=== PATIENT | female | born 2000 | race Caucasian/White ===

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

== ENCOUNTER 2022-11-06 12:30 | Emergency (ER) | payer OTHER, SELFPAY ==
--- NOTE | ~2022-11-06 | XR_ITS ---
EXAMINATION: XR nasal bones min 3V DATE: 11/06/2022 12:58 INDICATION: Nose injury, pain, and swelling. TECHNIQUE: 3 views of the nasal bones were obtained. COMPARISON: None. FINDINGS: Bone alignment is normal. No fracture. IMPRESSION: 1. No fracture. Reviewed, dictated and finalized at location A. IMPRESSION: 1. No fracture.
[2022-11-06 12:41] VITALS: BP 122/78; PULSE 93; RESP 18; TEMP 36.7; O2SAT 100
--- NOTE | 2022-11-06 12:45 | ED.GENADULT ---
HPI - General Adult General Chief complaint: Unspecified Stated complaint: nose injury Time Seen by Provider: 11/06/22 12:48 Mode of arrival: ambulatory Limitations: no limitations History of Present Illness HPI narrative: 3-year-old female presents with concern for nose injury. Reports 2 days ago she was kneed in the nose. She reports that bled for about 10 minutes. She reports she had some bruising. She reports it is painful. Reports she has used ice and ibuprofen. MD complaint: Nose injury Related Data Allergies Allergy/AdvReac Type Severity Reaction Status Date / Time No Known Allergies Allergy Verified 11/06/22 12:50 Review of Systems Review of Systems: CONSTITUTIONAL: Denies malaise, chills, sweats, or fever. EYES: Denies visual changes ENT: Denies rhinorrhea, current epistaxis. Reports sinus congestion CARDIOVASCULAR: Denies chest pain, palpitations, or edema. RESPIRATORY: Denies cough or dyspnea. SKIN: Denies rash or itching. Reports bruising and tenderness to the bridge of the nose MUSCULOSKELETAL: Denies back pain, joint pain, or myalgia. NEUROLOGIC: Denies numbness, weakness, or headache. All systems reviewed & are unremarkable except as noted in HPI and below PMFSH Past Medical History Medical History Right upper quadrant abdominal pain Family History Family History Mother No pertinent past medical history Social History Social History Smoking status: Never smoker Alcohol intake: never Substance use: never Living arrangements: with family Gender identity (if verbalized by the patient): Female Spiritual care concerns: No Comments At time of signature, agree with nursing past medical, surgical, social and family history. There is no relevant family history pertinent to the presenting complaint Exam Narrative: GENERAL: Well-appearing, well-nourished, and in no acute distress. HEAD: Normocephalic, atraumatic. EYES: PERRLA, sclera clear, and EOMI. No nystagmus. ENT: Nares clear, turbinates pink, no rhinorrhea or epistaxis. Mucous membranes moist. TM pearly hewitt with sharp light reflex bilaterally; no tragal tenderness. Oropharynx without erythema or lesions. Tonsils not enlarged and without exudate. NECK: Supple. No lymphadenopathy. No jugular venous distension, thyromegaly, or carotid bruits. Carotids were easily palpable bilaterally. CHEST: No respiratory distress. Clear to auscultation. No bony deformities, no asymmetry. Speaks in full sentences. HEART: Regular rate and rhythm. No murmur heard. Normal peripheral pulses. ABDOMEN: Soft, nontender, nondistended, normal active bowel sounds, no palpable masses. EXTREMITIES: Normal range of motion. No edema. Normal strength and sensation. SKIN: Warm, dry, no visible rash. NEURO: Alert and oriented x3. No focal deficits. Cranial nerves II through XII grossly intact PSYCH: Normal mood and affect Course Course Emergency Course: Patient is aware of diagnosis, understands and agrees to treatment plan. Anticipatory guidance given. Patient agrees to follow-up as directed and is aware of reasons to seek care at the emergency department. Portions of this record may have been created with voice recognition software Level of Care: Express Care Visit Vital Signs Vital signs: Vital Signs Temperature 98.0 F 11/06/22 12:41 Pulse Rate 93 11/06/22 12:41 Respiratory Rate 18 11/06/22 12:41 Blood Pressure 122/78 11/06/22 12:41 Pulse Oximetry 100 11/06/22 12:41 Oxygen Delivery Room Air 11/06/22 12:41 Temperature 98.0 F 11/06/22 12:41 Pulse Rate 93 11/06/22 12:41 Respiratory Rate 18 11/06/22 12:41 Blood Pressure 122/78 11/06/22 12:41 Pulse Oximetry 100 11/06/22 12:41 Oxygen Delivery Room Air 11/06/22 12:41 Reviewed. Medic
== END 2022-11-06 13:05 | disposition home or self-care (01) ==
PROVIDERS: Emergency Provider Nurse Practitioner; PCP Family Medicine
DX: S00.33XA Contusion of nose, initial encounter (principal); W51.XXXA Accidental striking against or bumped into by another person, initial encounter
CPT/HCPCS: 70160; 99213; G0463

== ENCOUNTER 2022-11-26 11:30 | Emergency (ER) | payer OTHER, SELFPAY ==
[2022-11-26 11:38] VITALS: BP 119/74; PULSE 90; RESP 18; TEMP 36.6; O2SAT 100
--- NOTE | 2022-11-26 11:58 | ED.EAR ---
HPI - Ear Problem General Chief complaint: Ear Stated complaint: Lt Ear Irritation Time Seen by Provider: 11/26/22 11:40 Source: patient Mode of arrival: ambulatory Limitations: no limitations History of Present Illness HPI Narrative: Virgie is a 22-year-old female patient presenting to the clinic today with complaints of left ear pain times 1 week. She reports she is also having difficulty hearing from the left ear. No known fever chills. Does have some nasal congestion however she does suffer from seasonal allergies. Related Data Allergies Allergy/AdvReac Type Severity Reaction Status Date / Time No Known Allergies Allergy Verified 11/26/22 11:42 Review of Systems Review of Systems: Pertinent positives per HPI. Patient denies any fever, chills, rash, headache, visual changes, dizziness, cough, runny nose, sore throat, shortness of breath, chest pain, palpitations, nausea, vomiting, diarrhea, constipation, abdominal pain, or any urinary issues. PMFSH Past Medical History Medical History Right upper quadrant abdominal pain Family History Family History Mother No pertinent past medical history Social History Social History Smoking status: Never smoker Alcohol intake: never Substance use: never Living arrangements: with family Gender identity (if verbalized by the patient): Female Spiritual care concerns: No Comments At the time of my signature, I reviewed and agree with the nursing past medical, surgical, social, and family history. There is no relevant family history pertinent to the patient complaint. Exam Narrative: General: Well-developed, well nourished, in no apparent distress Head: Normocephalic, atraumatic Eyes: Pupils equally round and reactive to light bilaterally, EOM intact, sclera and conjunctive clear, no discharge, lids normal Ears: Unable to visualize TMs due to cerumen impaction, bilateral ear canals impacted with cerumen, no drainage, grossly hearing normal. Tenderness to palpation of the left tragus and pulling of the pinna. Nose: Nares patent, clear discharge, no inflammation, no sinus tenderness. Mouth: Oropharynx without lesions or masses, good dentition, MMM. Neck: Supple, trachea midline, no enlargement of anterior or posterior cervical nodes, no thyroid masses or goiter palpable. Cardio: Regular rate and rhythm, s1 and s2 normal, no murmur appreciated. Resp: Clear to auscultation bilaterally anteriorly and posteriorly, no rhonchi, rales, wheezing or rubs Course Course Emergency Course: Portions of this record may have been created with voice recognition software. Level of Care: Express Care Visit Vital Signs Vital signs: Vital Signs Temperature 36.6 C 11/26/22 11:38 Pulse Rate 90 11/26/22 11:38 Respiratory Rate 18 11/26/22 11:38 Blood Pressure 119/74 11/26/22 11:38 Pulse Oximetry 100 11/26/22 11:38 Oxygen Delivery Room Air 11/26/22 11:38 Temperature 36.6 C 11/26/22 11:38 Pulse Rate 90 11/26/22 11:38 Respiratory Rate 18 11/26/22 11:38 Blood Pressure 119/74 11/26/22 11:38 Pulse Oximetry 100 11/26/22 11:38 Oxygen Delivery Room Air 11/26/22 11:38 Vital signs reviewed Procedures Ear Wax Removal Left Ear: Ear Wax Removal Date: 11/26/22 Cerumenolytic Used: other (Debrox) Results: Re-examined: other (Cerumen impaction remains) TM Examination: other (Unable to visualize left TM due to impacted cerumen) Ear Canal Exam: atraumatic Patient Tolerated Procedure: well and no complications Complications: pain (mild pain with ear curette) Technique: ear canal irrigated and ear canal curetted Additional Comments: Verbal consent obtained for ear lavage. Risk and benefits expl
== END 2022-11-26 12:20 | disposition home or self-care (01) ==
PROVIDERS: Emergency Provider Nurse Practitioner Family; PCP Family Medicine
DX: H60.312 Diffuse otitis externa, left ear (principal); H61.23 Impacted cerumen, bilateral
CPT/HCPCS: 69210; 99213; A9270; G0463

== ENCOUNTER 2023-12-12 13:56 | Outpatient (NON) | payer OTHER, SELFPAY | END 2023-12-12 13:57 | disposition home or self-care (01) | PROVIDERS: PCP Family Medicine; Visit Provider Family Medicine | DX: R39.9 Unspecified symptoms and signs involving the genitourinary system (principal) | CPT/HCPCS: 87086 ==

== ENCOUNTER 2024-09-28 15:04 | Emergency (ER) | payer OTHER, SELFPAY ==
--- OUTSIDE RECORDS SUMMARY | 2024-09-28 15:07 | XMS_ITS | Clinical Summary ---
Author Organization [facility] Address [address] [place] [address] Care Team Providers Care Lead Printer Name Role Phone Laura Bullard MD Primary Care Provider [phone] Source Comments [facility],non-owned Affiliates and Associated Physician Practices is amultiple site organization consisting of ambulatory clinics and hospital sitesin [place], [place], [place] and [place]. This disclosure is being madepursuant to the Care Everywhere program and may not contain all information available regarding this patient. Last updated 18.[facility] Active Problems Problem Noted Date Diagnosed Date Other chest pain Social History Tobacco Use Types Packs/Day Years Used Date Smoking Tobacco: Never Assessed Sex and Gender Information Value Date Recorded Sex Assigned at Not on file Gender Identity Not on file Sexual Orientation Not on file Plan of Treatment Health Maintenance Due Date Last Done Comments PAP SMEAR 2002 HIV SCREENING 2017 HPV VACCINE (1 - 3-dose series) 2017 CHLAMYDIA/GONORRHEA SCREENING 2018 MENINGOCOCCAL (Group B) VACC INE SHARED DECISION-MAKING (1 of 2 - Standard) 2018 HEPATITIS C SCREENING 10/14/2020 DTAP/TDAP/TD VACCINES (1 - Tdap) 2021 HEPATITIS B VACCINE (1 of 3 - 19+ 3-dose series) 2021 COVID-19 VACCINE (1 - 2023-2 5 season) 2024 INFLUENZA VACCINE (#1) 2024 DEPRESSION SCREENING 07/02/2024 ZOSTER VACCINE (1 of 2) 2052 HIB VACCINE Aged Out No longer eligi ble based on patient's age to complete this topic MENINGOCOCCAL GROUPS A/C/Y/W VACCINE Aged Out No longer eligible b ased on patient's age to complete this topic PNEUMOCOCCAL VACCINE Aged Out No long er eligible based on patient's age to complete this topic Care Teams Lead Printer Relationship Specialty Start Date End Date Laura Bullard MD [address] [place] [address] PCP - General Family Medicine 01/27/19
--- OUTSIDE RECORDS SUMMARY | 2024-09-28 15:07 | XMS_ITS | Data Portability ---
Author Organization [facility] Address [address] [place] [address] Care Team Providers Care Mine Wirer Name Role Phone BASILIOLOUISNICKI Primary Care Provider [phone] Assessment No assessment recorded. Plan of Treatment Reminders Order Date Submit Date Provider Last Modified By Organization Details Last Modified Time Details Appointments None recorded . Lab None recorded . Referral None recorded . Procedures None recorded . Surgeries None recorded . Imaging None recorded . Medication Orders Penelope Fe () 1.5 mg-30 mcg (21)/75 mg (7) tablet 023 09/29/19 [id number], [address], [place], [place], [id number], 14:24:35 Patient TargetsNo targets recorded. Patient InstructionsNo instructions recorded. Reason for Referral None Reported. Medical Equipment None Reported. Allergies No known drug allergies Medications Name Sig Start Date Stop Date Status Note LastModified by Organization Details LastModified Time bupropion HCl XL 300 mg 24 hr tablet, extended release TAKE 1 TABLET BY MOUTH EVERY MORNING active Not Available Not Available No t Available bupropion HCl XL 150 mg 24 hr tablet, extended release TAKE 1 TABLET BY MOUTH EVERY MORNING 09/28 completed Not Available Not Available Not Available [facility] () 1.5 mg-30 mcg (21)/75 mg (7) tablet TAKE 1 TABLET BY MOUTH EVERY DAY WITH MEALS active Not Available Not Available No t Available nitrofuranto in monohydrate/ macrocrystal s 100 mg capsule 09/28 completed Not Available Not Available Not Available Rhea 1.5 mg-30 mcg tablet TAKE 1 TABLET BY MOUTH EVERY DAY active Not Available Not Available No t Available Vitals Date Recorded Body height Body mass index (BMI) Percentile per age and sex Body mass index (BMI) Body weight Provider Name and Address Organization Details Last Updated DateTime 09/28/2022 161.29 cm 76 % 24.6 kg/m2 72256.52 g Sangita Sánchez [facility] 09/28/2022 14:17:54 Date Recorded Systolic blood pressure Diastolic blood pressure Provider Name and Address Organization Details Last Updated DateTime 09/28/2022 116 mm[Hg] 72 mm[Hg] Arabella Donovan, [facility]- [address], [place], [address], [facility] 09/28/2022 15:24:09 Social History Question Answer Notes LastModified by Organizat ion Details LastModified Time Tobacco Smoking Status Never Smoker Sangita Sánchez null, [facility] 09/28/2022 14:12:09 What Is Your Level Of Alcohol Consumption? None Information not available 09/28/2022 Do You Use Any Illicit Or Recreational Drugs? No Information not available 09/28/2022 Has Tobacco Cessation Counseling Been Provided? No Information not available 09/28/2022 Do You Or Have You Ever Used Any Other Forms Of Tobacco Or Nicotine? No Information not available 09/28/2022 Sex: Unknown Functional Status None recorded. Mental Status None recorded. Family History Nothing Reported. Medical History Condition Response Allergies (Food, seasonal, environmental ) N Other N Breast Cancer N Drug/Latex Allergies/Reactions N Blood Transfusion N Dermatologic Disorders N Lung Disease N Defects or Inherited Disease N Breast Problem N Gestational Diabetes N Hematologic disorders N Anesthesia Complications N History of STI N Deep Vein Thrombosis N Polycystic ovary syndrome N Anxiety Disorder Y Autoimmune disease N Arthritis N Infertility N Polyps N Acid Reflux (GERD) Y History of abnormal pap N Cancer N Stroke N Varicosities N Neurologic/Epilepsy N Endometriosis N High Cholesterol N Headaches N Fibromyalgia N Kidney Disease N Heart Problems N Kidney or Bladder Problems N Thyroid Problems N GI Problems N Eating Disorder N Anemia N Art (IVF or FET) N Psychiatric Illness N Ovarian Cancer N Diabetes N Pulmonary (TB, Asthma) N Hepatitis/Liver Disease N No Past Medical History N Eczema N Urinary Tract Infection N Abuse/Domestic Violence N Asthma N Trauma/Violence N Depression/ depression N Heart Disease N Pre-Eclampsia N Hypertension N Osteoporosis N Thrombophilias N Gynecological History Statement/Question Response Flow Moderate Are cycles usually normal Y Frequency of Cycle (Q days) 28 Date of LMP 09/26/2022 Sexually Active? Y Menses Monthly Y STIs/STDs N Age of first menstrual cycle 14 HPV Vaccine Y Sexual Problems? N Current Control Method BCPs Obstetrics History GPAL:G 0 P 0 0 0 0 Past Encounters Encounter ID Performer Location Encounter Start Date Encounter Closed Date Diagnosis/Indication Diagnosis SNOMED-CT Code Diagnosis ICD10 Code Diagnosis Note [id number] Arabella Donovan , [facility] [address] [address] 09/28/2022 14:11:07 09/28/2022 15:32:07 Contraception care management [id number] Z30.9 Today we discussed her BCP.She is happy on her current FRANCK.It has greatly helped her menstrual cycle flow & dysmenorrh ea.She wishes to continue this therapy. Declined STD screen-rec ent one negativeNo new sexual partners.N o other issues or concerns today. RF sent x 1yr RTO x 1yr or sooner if needed Time spent in visit is a total of 30 mins with at least 50% of visit consisting of counseling and review of plan of care. Health Concerns Section Related Observation LastModified by Organization Detai ls LastModified Time None Recorded Concern Status LastModified by Organization Details LastModified Time None Recorded Advance Directives Directive None Recorded Payers Encounter Date Sequence Insurance Name Policy Number Policy Atkinson Covered Member ID Atkinson Member ID Guarantor Name 09/28/2022 1 R [id number] Naomi Ortiz [id number] Virgie Ortiz Notes Date Note Type Note Provider Name and Address Organization Details Recorded Time 09/28/2022 text/html Here today to establish care & continue contraception management for heavy menses. Her health hx was reviewed & reported information documented in chart. Arabella Donovan [facility] [address], [place], [address], [facility] 09/28/2022 15:27:06 OBGyn Episode No OBEpisode recorded.
--- NOTE | 2024-09-28 15:09 | ED.GENADULT ---
HPI - General Adult General Chief complaint: Urogenital-Female Stated complaint: UTI Time Seen by Provider: 09/28/24 15:09 Source: patient Mode of arrival: ambulatory Limitations: no limitations History of Present Illness HPI narrative: 23-year-old female patient presents to [facility] with complaints of urinary symptoms for the past 2-3 days. Patient complains of burning with urination, urgency, frequency and some vaginal discharge. Denies any fevers, body aches or chills. Denies any low back pain. Denies any lower abdominal pain. Denies history of . Patient states last menstrual cycle started on September 10 and ended on September 07. Patient states she is sexually active with only 1 partner. Patient does not wish to be tested for STDs today. Related Data Allergies Allergy/AdvReac Type Severity Reaction Status Date / Time No Known Allergies Allergy Verified 09/28/24 15:14 Review of Systems Review of Systems: CONSTITUTIONAL: Denies fever, chills, or sweats. EYES: Denies visual changes, redness, or discharge. ENT: Denies rhinorrhea, congestion, sore throat, or otalgia. CARDIOVASCULAR: Denies chest pain, palpitations, or edema. RESPIRATORY: Denies cough or dyspnea. GASTROINTESTINAL: Denies abdominal pain, nausea, vomiting, or diarrhea. GENITOURINARY: Positive dysuria , denies hematuria. SKIN: Denies rash or itching. MUSCULOSKELETAL: Denies back pain, joint pain, or myalgia. NEUROLOGIC: Denies headache, numbness, or weakness. PSYCHIATRIC: Denies anxiety or depression. [facility] Past Medical History Medical History Right upper quadrant abdominal pain Family History Family History Mother No pertinent past medical history Social History Social History Social History: Caffeine-daily Smoking status: Never smoker Alcohol intake: never Substance use: never Substance use type: does not use Lack of Transportation: No Lack of Food: Never True Current Housing: I Have Housing Concerned About Future Housing: No Difficulty Paying Gas/Electric Bills: No Difficulty Paying for Meds: No Currently Unemployed: No Education: High School Diploma/GED Difficulty w/ Childcare or Family Care: No Living arrangements: with family Gender identity (if verbalized by the patient): Female Spiritual care concerns: No Comments At the time of my signature I agree with nursing past medical history, surgical, social, and family history. There is no relevant family history pertinent to the presenting complaint. Exam Narrative: GENERAL: Well-appearing, well-nourished, and in no acute distress. HEAD: Normocephalic, atraumatic. EYES: PERRLA and EOMI. ENT: Nares clear, no rhinorrhea or epistaxis. Mucous membranes moist. NECK: Supple. No lymphadenopathy CHEST: Clear to auscultation. No respiratory distress. HEART: Regular rate and rhythm. No murmur heard. Normal peripheral pulses. ABDOMEN: Soft, nontender, nondistended, normal active bowel sounds. no CVA tenderness on percussion EXTREMITIES: Normal range of motion. No edema. SKIN: Warm, dry, no rash. NEURO: No focal deficits. Alert and oriented x3. Course Course Level of Care: Express Care Visit Vital Signs Vital signs: Vital Signs Temperature 36.7 C 09/28/24 15:12 Pulse Rate 89 09/28/24 15:12 Respiratory Rate 18 09/28/24 15:12 Blood Pressure 122/64 09/28/24 15:12 Pulse Oximetry 100 09/28/24 15:12 Oxygen Delivery Room Air 09/28/24 15:12 Temperature 36.7 C 09/28/24 15:12 Pulse Rate 89 09/28/24 15:12 Respiratory Rate 18 09/28/24 15:12 Blood Pressure 122/64 09/28/24 15:12 Pulse Oximetry 100 09/28/24 15:12 Oxygen Delivery Room Air 09/28/24 15:12 Vital signs reviewed Medical Decision Making MDM Narrative Medical decision making narrative: discussed with patient that her urine did show some leukocytes and since she is having symptoms we will go ahead and start her on antibiotics today. Discussed with her that we will send this to the lab and if the culture shows she needs a different type of antibiotic we will call her call her and did new antibiotic at that time. Discussed with her that I would also provide her some fluconazole to take after she has completed the antibiotics for any yeast infection symptoms. Patient verbalized understanding denies any other questions or concerns at this time Differential Diagnosis Differential Diagnosis: differential diagnosis: Uncomplicated lower UTI, uncomplicated UTI, pyelonephritis Vital Signs Vital Signs: Vital Signs Temperature 36.7 C 09/28/24 15:12 Pulse Rate 89 09/28/24 15:12 Respiratory Rate 18 09/28/24 15:12 Blood Pressure 122/64 09/28/24 15:12 Pulse Oximetry 100 09/28/24 15:12 Oxygen Delivery Room Air 09/28/24 15:12 Temperature 36.7 C 09/28/24 15:12 Pulse Rate 89 09/28/24 15:12 Respiratory Rate 18 09/28/24 15:12 Blood Pressure 122/64 09/28/24 15:12 Pulse Oximetry 100 09/28/24 15:12 Oxygen Delivery Room Air 09/28/24 15:12 Lab Data Labs: Lab Results 09/28/24 Range/Units 15:18 POC Urine Color Light/pale POC Urine Clarity Cloudy POC Urine pH 7.0 POC Ur Specif [place] 1.010 POC Urine Protein Negative (Negative) POC Ur Glucose (UA) Negative (Negative) POC Urine Ketones Negative (Negative) POC Urine Blood Negative (Negative) POC Urine Nitrite Negative (Negative) POC Urine Bilirubin Negative (Negative) POC Urine Urobilinogen 0.2 POC U Leukocyte Esteras 1+ (Negative) POC Urine HCG, Qual Negative (Negative) Critical Care Time Critical Care Time Critical Care Time: No Discharge Plan Discharge Clinical Impression: Urinary tract infection Patient Disposition: Home, Self-Care Condition: Stable Instructions: Antibiotic Form, Urinary Tract Infection in Women (ED) Additional Instructions: We will send a urine culture off to the lab; if the culture identifies an organism that the prescribed antibiotic will not treat, you will receive a phone call from an urgent care staff member and an appropriate antibiotic will be prescribed. -Your symptoms should begin to improve within a day of starting antibiotics. But you should finish all the antibiotic pills you get. Otherwise your infection might come back. -Also recommend: drink more fluid. It might help flush out germs, and it does no harm -Tylenol/ibuprofen prn for pain or fever -Follow-up with your primary care provider for urine recheck or seek ER visit if condition worsens with high fever, nausea, vomiting and severe back pain. Patient Language: Nepali Prescriptions: New nitrofurantoin monohyd/m-cryst [Macrobid] 100 mg capsule 100 mg PO Q12H 5 Days Qty: 10 0RF Rx Instructions: must administer with a meal/food fluconazole 150 mg tablet 150 mg PO ONCE Qty: 1 0RF Rx Instructions: as a single dose, take after completing antibiotics No Action bupropion HCl 300 mg tablet extended release 24 hr 150 mg PO QAM Qty: 30 1RF Follow-up/Referrals: Laura Bullard MD [Primary Care Provider] - Time of Disposition: 15:27
[2024-09-28 15:12] VITALS: BP 122/64; PULSE 89; RESP 18; TEMP 36.7; O2SAT 100
[2024-09-28 15:20] LABS: BEDSIDEPREGUCG Negative (Negative)
[2024-09-28 15:21] LABS: EDUAAPPEAR Cloudy; EDUABILI Negative (Negative); EDUABLOOD Negative (Negative); EDUACOLOR1 Light/Pale; EDUAGLUCOSE Negative (Negative); EDUAKETONE Negative (Negative); EDUALEUKO 1+ (Negative); EDUANITRATE Negative (Negative); EDUAPROTEIN Negative (Negative); EDUAUROBILI 0.2
== END 2024-09-28 15:29 | disposition home or self-care (01) ==
PROVIDERS: Emergency Provider Nurse Practitioner Family; PCP Family Medicine
DX: N39.0 Urinary tract infection, site not specified (principal)
CPT/HCPCS: 81003; 81025; 87086; 99213; G0463

== ENCOUNTER 2025-02-05 19:13 | Emergency (ER) | payer OTHER, SELFPAY ==
[2025-02-05] VITALS (17 sets, daily range): BP systolic 106–119; BP diastolic 58–77; PULSE 110–131; RESP 16–35; TEMP 37.8; O2SAT 100
--- NOTE | ~2025-02-05 | CT_ITS ---
CLINICAL INDICATION: Tachycardia and tachypnea with bilateral flank pain COMPARISON: None. TECHNIQUE: Multiple contiguous axial images of the abdomen and pelvis were performed following the ad ministration of with 100 mL Omnipaque-350 intravenous contrast The dose-length product (DLP) was 305.47 mGy-cm. Automated exposure control and iterative reconstruction technique were employed. FINDINGS/OBSERVATIONS: Visualized lower thorax: The bilateral lung bases are clear. The heart is of normal size, without pericardial effusion. Liver: The liver demonstrates homogeneous enhancement and is not enlarged. Gallbladder and biliary system: The gallbladder is only minimally distended, and otherwise unremarkable. Pancreas: The pancreas enhances homogeneously without ductal dilatation. Spleen: The spleen enhances homogeneously and is not enlarged. Kidneys: 2 mm nonobstructing calculus within the lower pole of the left kidney The bilateral kidneys enhance symmetrically without significant hydronephrosis or additional renal ca lculi. Adrenal glands: Unremarkable. Gastrointestinal tract: Trace fecal stasis within the colon Appendix: The air-filled appendix is of normal caliber (axial series, images 124 through 131). Vasculature: Unremarkable. Lymph nodes: No pathologically enlarged or morphologically suspicious lymph nodes within the retroperitoneum or at the root of the mesentery. Pelvic structures: The bladder is distended, and demonstrates surrounding inflammatory change for which cystitis is susp ected. The uterus is anteverted and anteflexed. Free fluid within the rectovaginal pouch, likely physiologic in a patient of this age. Body wall and musculoskeletal: No significant degenerative disease within the lower thoracic or lumbosacral spine. IMPRESSION: Findings within the pelvis for which cystitis is suspected. Nonobstructing 2 mm calculus within the lower pole of the left kidney Reviewed, dictated and finalized at location A.
--- OUTSIDE RECORDS SUMMARY | 2025-02-05 19:15 | XMS_ITS | Clinical Summary ---
Author Organization [facility] Address [address] [place] [address] Care Team Providers Care Medical And Health Services Manager Name Role Phone Laura Bullard MD Primary Care Provider [phone] Source Comments [facility],non-owned Affiliates and Associated Physician Practices is amultiple site organization consisting of ambulatory clinics and hospital sitesin [place], [place], [place] and [place]. This disclosure is being madepursuant to the Care Everywhere program and may not contain all information available regarding this patient. Last updated 18.[facility] Active Problems Problem Noted Date Diagnosed Date Other chest pain Social History Tobacco Use Types Packs/Day Years Used Date Smoking Tobacco: Never Assessed Comments Unknown Sex and Gender Information Value Date Recorded Sex Assigned at Not on file Legal Sex Female 7:47 AM CDT Gender Identity Not on file Sexual Orientation Not on file Plan of Treatment Health Maintenance Due Date Last Done Comments HIV SCREENING 2017 HPV VACCINE (1 - 3-dose series) 2017 CHLAMYDIA/GONORRHEA SCREENING 2018 MENINGOCOCCAL (Group B) VACC INE SHARED DECISION-MAKING (1 of 2 - Standard) 2018 HEPATITIS C SCREENING 10/14/2020 DTAP/TDAP/TD VACCINES (1 - Tdap) 2021 HEPATITIS B VACCINE (1 of 3 - 19+ 3-dose series) 2021 COVID-19 VACCINE (1 - 2023-2 5 season) 2024 DEPRESSION SCREENING 07/02/2024 INFLUENZA VACCINE (#1) 2025 ZOSTER VACCINE (1 of 2) 2052 HIB VACCINE Aged Out No longer eligi ble based on patient's age to complete this topic MENINGOCOCCAL GROUPS A/C/Y/W VACCINE Aged Out No longer eligible b ased on patient's age to complete this topic PNEUMOCOCCAL VACCINE Aged Out No long er eligible based on patient's age to complete this topic Insurance ANTHEM ANTHEM Care Teams Medical And Health Services Manager Relationship Specialty Start Date End Date Laura Bullard MD [address] [place] [address] PCP - General Family Medicine 01/27/19
[2025-02-05 19:52] LABS: BEDSIDEPREGUCG Negative (Negative)
[2025-02-05 20:01] LABS: Add Urine Microscopic? YES; Appearance Urine Clear (Clear); Glucose Urine UA Negative (Negative); Leukocyte Esterase Ur 1+ LEU/UL (Negative); Need Manual Microscopic Reviewed; Nitrate Urine Negative (Negative); Non Pathogenic Casts 0-2; Specific Grav Ur 1.014 (1.001-1.035)
[2025-02-05 21:02] LABS: Hematocrit 34.1 % (37.0-47.0); Hemoglobin 11.1 g/dL (12.0-15.0); Immature Granulocyte Percent A 0.3 % (0-0.5); Lymphocytes Absolute Auto 0.84 K/mm3 (0.9-3.2); Mean Corpuscular HGB Conc 32.6 g/dl (32-36); Mean Corpuscular Hemoglobin 28.9 pg (26-34); Mean Corpuscular Volume 88.8 fl (80-100); Nucleated Red Blood Cells Absolute Auto 0.000 K/mm3 (0.0-0.012); Nucleated Red Blood Cells Perc 0.0 % (0.0-0.2); Platelet Count Result 212 k/mm3 (150-375); Red Blood Count 3.84 M/mm3 (4.2-5.4); White Blood Count 9.1 K/mm3 (4.5-10.0)
--- NOTE | 2025-02-05 21:12 | ED_ITS ---
HPI - Female Genitourinary General Chief complaint: Urogenital-Female Stated complaint: Bilat flank pain-poss kidney stone Time Seen by Provider: 02/05/25 20:45 Source: patient and family (Mother) Mode of arrival: ambulatory Limitations: no limitations History of Present Illness HPI Narrative: 24-year-old female presents with report bilateral flank pain for 4 days. She is concern for kidney stones although no previous. She has been having urinary urgency and frequency but denies any dysuria or hematuria. She has had a history of urinary tract infection but it was otherwise uncomplicated. No history of pyelonephritis. Last menstrual period was January 30 through the . Denies any other vaginal discharge or bleeding. No history of sexually transmitted infections. She notes that she does have some occasional abdominal pain in although it moves around for example under her ribs at times. Her last bowel movement was not yesterday, possibly the day before. She is currently on Flagyl for possible bacterial vaginosis. This was diagnosed/prescribed by her primary care physician. She does not have an Ob Gyne or a urologist. No previous abdominal surgeries. Related Data Allergies Allergy/AdvReac Type Severity Reaction Status Date / Time No Known Allergies Allergy Verified 02/05/25 19:33 PMFSH Past Medical History Medical History Right upper quadrant abdominal pain Family History Family History Mother No pertinent past medical history Social History Social History Social History: Caffeine-daily Smoking status: Never smoker Alcohol intake: never Substance use: never Substance use type: does not use Lack of Transportation: No Lack of Food: Never True Current Housing: I Have Housing Concerned About Future Housing: No Difficulty Paying Gas/Electric Bills: No Difficulty Paying for Meds: No Currently Unemployed: No Education: High School Diploma/GED Difficulty w/ Childcare or Family Care: No Living arrangements: with family Gender identity (if verbalized by the patient): Female Spiritual care concerns: No Exam 2 Narrative: GENERAL: Well-appearing, well-nourished, HEAD: Normocephalic, atraumatic. EYES: Non injected, non icteric ENT: Nares clear, no rhinorrhea or epistaxis. Gross auditory acuity intact. NECK: Supple. No meningismus. CHEST: Speaking in full sentences. No respiratory distress. HEART: Tachycardic rate and rhythm, 116 beats per minute during my assessment ABDOMEN: Soft, nondistended. No rigidity or guarding. Not peritoneal. Back/: Patient notes mild CVA tenderness which she endorses bilaterally although based on physical exam it seems right greater than left EXTREMITIES: Normal range of motion. No lower extremity edema. SKIN: Warm, dry, no rash. NEURO: No focal deficits. Alert and oriented. Answering questions. Following commands. Normal speech without aphasia or dysarthria. PSYCH: Normal mood and affect. Course Vital Signs Vital signs: Vital Signs Temperature 100.1 F H 02/05/25 19:31 Pulse Rate 131 H 02/05/25 19:31 Respiratory Rate 20 02/05/25 19:31 Blood Pressure 119/68 02/05/25 19:31 Pulse Oximetry 100 02/05/25 19:31 Oxygen Delivery Room Air 02/05/25 19:31 Temperature 98.9 F 02/06/25 02:59 Pulse Rate 108 H 02/06/25 02:59 Respiratory Rate 24 H 02/06/25 02:59 Blood Pressure 98/57 L 02/06/25 02:59 Pulse Oximetry 98 02/06/25 02:59 Oxygen Delivery Room Air 02/05/25 19:31 MDM - Female Genitourinary MDM Narrative Medical decision making narrative: Patient presents with bilateral flank pain. In the emergency department she is borderline febrile with a temperature of a 100.1? F and markedly tachycardic at 131 beats per minute. Acetaminophen and 1 L IV fluids ordered. test negative. No bacteria on urinalysis and only 1+ leukocyte esterase but otherwise without marked signs of infection. She has a normocytic anemia which technically represents a drop from previous although last lab was more than 5 years ago. She continues to be tachycardic at 116-119 beats per minute. Additional 1 L IV fluids, IV ketorolac ordered. Findings were concerning for cystitis on imaging and based on symptoms will proceed with treating as urinary tract infection and pyelonephritis despite the UA not appearing markedly infected. Did order urine culture and asked RN to call lab to confirm will process. Ceftriaxone given. Patient is persistently tachycardic, in the 110s and occasionally still in the low 120s. This is after 2 L IV fluids. Given this, will obtain EKG, D-dimer, and TSH. Per review of the EMR, patient has presented previously and had heart rates in the 80s and frequently in the 90s. D-dimer and TSH normal. Patient's heart rate is view to be between 99 and 101 at this time. Stable for discharge. Provided Rx for cephalexin, acetaminophen and ibuprofen. Differential Diagnosis Differential diagnosis: Likely urinary tract infection (Pyelonephritis), ovarian cyst, ruptured ovarian cyst, cystitis and other (Kidney stone, infected kidney stone, renal/perinephric abscess; TOA/PID; intraabdominal abscess; constipation) Lab Data Attestation: I reviewed the patient's lab results. Lab results narrative: Chemistry and lipase normal 02/05/25 20:57 02/05/25 20:57 Labs: Lab Results 02/05/25 02/05/25 02/05/25 Range/Units 19:46 19:47 20:57 WBC 9.1 (4.5-10.0) K/mm3 RBC 3.84 L (4.2-5.4) M/mm3 Hgb 11.1 L (12.0-15.0) g/dL Hct 34.1 L (37.0-47.0) % MCV 88.8 (80-100) fl MCH 28.9 (26-34) pg MCHC 32.6 (32-36) g/dl RDW 12.4 (11.5-14.5) % Plt Count 212 (150-375) k/mm3 MPV 10.1 (7.4-10.4) fl Immature Gran % (Auto) 0.3 (0-0.5) % Neut % (Auto) 72.1 (45.5-73.1) % Lymph % (Auto) 9.3 L (18.3-44.2) % [place] % (Auto) 17.6 H (2.6-8.5) % Eos % (Auto) 0.1 (0-4.4) % Baso % (Auto) 0.6 (0.2-1.2) % Lymph # (Auto) 0.84 L (0.9-3.2) K/mm3 [place] # (Auto) 1.6 H (0.1-0.6) K/mm3 Eos # (Auto) 0.0 (0-0.3) K/mm3 Baso # (Auto) 0.1 (0.0-0.1) K/mm3 Abs Immat Gran (auto) 0.03 (0.00-0.031) K/mm3 Absolute Neuts (auto) 6.5 (1.3-6.7) K/mm3 Absolute Nucleated RBC 0.000 (0.0-0.012) K/mm3 Nucleated RBC % 0.0 (0.0-0.2) % D-Dimer (<0.48) ug/mL Sodium 137 (137-145) mmol/L Potassium 3.5 (3.4-5.0) mmol/L Chloride 104 (98-107) mmol/L Carbon Dioxide 23 (22-30) mmol/L Anion Gap 10 (4-12) mmol/L BUN 6 L (7-17) mg/dL Creatinine 0.70 (0.7-1.0) mg/dL Estim Creat Clear Calc 90 ml/min Estimated GFR > 60 (59 - ) Glucose 90 (65-110) mg/dL Calcium 9.0 (8.4-10.2) mg/dL Total Bilirubin 0.2 (0.2-1.3) mg/dL AST 23 (14-36) U/L ALT 13 (6-35) U/L Alkaline Phosphatase 59 (38-126) U/L Total Protein 7.3 (6.3-8.2) g/dL Albumin 4.1 (3.5-5.1) g/dL Lipase 68 (23-300) U/L TSH 0.471 (0.465-4.680) uIU/mL Urine Color Yellow (Yellow) Urine Appearance Clear (Clear) Urine pH 7.5 (5.0-9.0) Ur Specific [place] 1.014 (1.001-1.035) Urine Protein 1+ H (Negative) mg/dL Urine Glucose (UA) Negative (Negative) mg/dL Urine Ketones Negative (Negative) mg/dL Ur Blood (Man) Negative (Negative) Urine Nitrate Negative (Negative) Urine Bilirubin Negative (Negative) Urine Urobilinogen 1.0 (<2.0) mg/dL Add Ur Microanalysis Reviewed Leukocyte Esterase Rfl 1+ H (Negative) [place]/UL Urine RBC 0-2 (0-2) /hpf Urine WBC 0-5 (0-3) /hpf Ur Squamous Epith Cells Moderate (Few) /hpf Urine Bacteria None seen /hpf Urine Casts 0-2 POC Urine HCG, Qual Negative (Negative) 02/06/25 Range/Units 00:39 WBC (4.5-10.0) K/mm3 RBC (4.2-5.4) M/mm3 Hgb (12.0-15.0) g/dL Hct (37.0-47.0) % MCV (80-100) fl MCH (26-34) pg MCHC (32-36) g/dl RDW (11.5-14.5) % Plt Count (150-375) k/mm3 MPV (7.4-10.4) fl Immature Gran % (Auto) (0-0.5) % Neut % (Auto) (45.5-73.1) % Lymph % (Auto) (18.3-44.2) % [place] % (Auto) (2.6-8.5) % Eos % (Auto) (0-4.4) % Baso % (Auto) (0.2-1.2) % Lymph # (Auto) (0.9-3.2) K/mm3 [place] # (Auto) (0.1-0.6) K/mm3 Eos # (Auto) (0-0.3) K/mm3 Baso # (Auto) (0.0-0.1) K/mm3 Abs Immat Gran (auto) (0.00-0.031) K/mm3 Absolute Neuts (auto) (1.3-6.7) K/mm3 Absolute Nucleated RBC (0.0-0.012) K/mm3 Nucleated RBC % (0.0-0.2) % D-Dimer 0.35 (<0.48) ug/mL Sodium (137-145) mmol/L Potassium (3.4-5.0) mmol/L Chloride (98-107) mmol/L Carbon Dioxide (22-30) mmol/L Anion Gap (4-12) mmol/L BUN (7-17) mg/dL Creatinine (0.7-1.0) mg/dL Estim Creat Clear Calc ml/min Estimated GFR (59 - ) Glucose (65-110) mg/dL Calcium (8.4-10.2) mg/dL Total Bilirubin (0.2-1.3) mg/dL AST (14-36) U/L ALT (6-35) U/L Alkaline Phosphatase (38-126) U/L Total Protein (6.3-8.2) g/dL Albumin (3.5-5.1) g/dL Lipase (23-300) U/L TSH (0.465-4.680) uIU/mL Urine Color (Yellow) Urine Appearance (Clear) Urine pH (5.0-9.0) Ur Specific [place] (1.001-1.035) Urine Protein (Negative) mg/dL Urine Glucose (UA) (Negative) mg/dL Urine Ketones (Negative) mg/dL Ur Blood (Man) (Negative) Urine Nitrate (Negative) Urine Bilirubin (Negative) Urine Urobilinogen (<2.0) mg/dL Add Ur Microanalysis Leukocyte Esterase Rfl (Negative) [place]/UL Urine RBC (0-2) /hpf Urine WBC (0-3) /hpf Ur Squamous Epith Cells (Few) /hpf Urine Bacteria /hpf Urine Casts POC Urine HCG, Qual (Negative) Imaging Data Radiologist's impression: IMPRESSION: Findings within the pelvis for which cystitis is suspected. Nonobstructing 2 mm calculus within the lower pole of the left kidney ECG Data EKG #1: Attestation: I personally reviewed and interpreted this ECG as follows: ECG completion date: 02/06/25 ECG completion time: 01:19 Interpretation: Sinus tachycardia at a rate of 103 beats per minute. PA interval 140. QRS 82. QT/QTC 324/425. Good R-wave progression across the precordial leads. T-wave flattening in 3 but upright in contiguous inferior leads. T-wave inversion in V3 though I suspect this is due to lead placement. No other T-wave inversions. Discharge Plan Discharge Clinical Impression: Normocytic anemia, Bilateral flank pain, Urinary symptom or sign, Pyelonephritis Patient Disposition: Home Condition: Stable Instructions: Antibiotic Form, Kidney Infection (ED), Flank Pain (ED), Anemia (ED), Urinary Urgency and Frequency (DC) Additional Instructions: Although, on the end of your urine did not show all of the labs that would suggest a urinary tract infection, your CT scan did and her symptoms do sound consistent with a urinary tract infection that ascended to your kidneys known as a pyelonephritis. You received your 1st dose of antibiotic in the emergency department and the rest of the course has been prescribed. Take the entire course even if you start feeling better. Follow-up with your primary care physician. Return to the emergency department any new or worsening symptoms such as fever greater than 100.4? F and pr pain not responding to the medications prescribed. Acetaminophen/Tylenol (maximum 4000 mg per day) is safe to take with NSAIDs (ibuprofen/Motrin) for pain relief. Patient Language: Belarusian Prescriptions: New acetaminophen 650 mg tablet extended release 650 mg PO Q8H PRN (Reason: pain) Qty: 30 0RF ibuprofen 600 mg tablet 600 mg PO TID PRN (Reason: pain) Qty: 30 0RF cephalexin 500 mg tablet 500 mg PO Q8H 10 Days Qty: 30 0RF No Action bupropion HCl 150 mg tablet extended release 24 hr 150 mg PO DAILY Qty: 90 0RF clindamycin-benzoyl peroxide 1-5 % gel 1 applic topical .HS Qty: 50 2RF fluconazole 150 mg tablet 150 mg PO Q72H Qty: 2 0RF lidocaine HCl [Lidocaine Viscous] 2 % solution 1 applic mucous membrane TID Qty: 300 0RF cyclobenzaprine 10 mg tablet 10 mg PO TID PRN (Reason: muscle spasm) Qty: 20 0RF metronidazole 500 mg tablet 500 mg PO Q12H Qty: 14 0RF Follow-up/Referrals: Laura Bullard MD [Primary Care Provider] - Stand Alone Forms: Work/School Release IP Time of Disposition: 02:49
[2025-02-05 21:14] LABS: Alanine Aminotransferase 13 U/L (6-35); Albumin Level 4.1 g/dL (3.5-5.1); Alkaline Phosphatase 59 U/L (38-126); Anion Gap 10 mmol/L (4-12); Aspartate Amino Transferase 23 U/L (14-36); Bilirubin,Total 0.2 mg/dL (0.2-1.3); Blood Urea Nitrogen 6 mg/dL (7-17); Calcium 9.0 mg/dL (8.4-10.2); Carbon Dioxide 23 mmol/L (22-30); Chloride 104 mmol/L (98-107); Estimated CRCL calculation 90 ml/min; Estimated Glomerular Filt Rate > 60; Glucose 90 mg/dL (65-110); Lipase 68 U/L (23-300); Potassium 3.5 mmol/L (3.4-5.0); Sodium 137 mmol/L (137-145); Total Protein 7.3 g/dL (6.3-8.2)
[2025-02-05] MEDS: ACETAMINOPHEN 500 MG TABLET 1000 MG PO (21:26)
[2025-02-05] MEDS: SODIUM CHLORIDE 0.9% IV 1,000 ML 999 ML IV CONT ×2 (21:26→23:08)
--- OUTSIDE RECORDS SUMMARY | 2025-02-05 21:45 | XMS_ITS | Clinical Summary ---
Author Organization [facility] Address [address] [place] [address] Care Team Providers Care Bull Gang Supervisor Name Role Phone Laura Bullard MD Primary Care Provider [phone] Source Comments [facility],non-owned Affiliates and Associated Physician Practices is amultiple site organization consisting of ambulatory clinics and hospital sitesin [place], [place], [place] and [place]. This disclosure is being madepursuant to the Care Everywhere program and may not contain all information available regarding this patient. Last updated 18.[facility] Active Problems Problem Noted Date Diagnosed Date [...] this topic Insurance ANTHEM ANTHEM Care Teams Bull Gang Supervisor Relationship Specialty Start Date End Date Laura Bullard MD [address] [place] [address] PCP - General Family Medicine 01/27/19
[2025-02-05] MEDS: KETOROLAC 15 MG/ML VIAL (*BKC) IV PUSH (23:08)
--- NOTE | 2025-02-05 23:13 | PC.NURSE ---
pct at bedside to attempt blood cultures.
[2025-02-06] VITALS (14 sets, daily range): BP systolic 87–100; BP diastolic 50–57; PULSE 96–115; RESP 12–28; TEMP 37.2; O2SAT 96–100
--- NOTE | 2025-02-06 00:21 | ECG_ITS ---
Test Date: 2025-02-06 01:19:26 Measurements Intervals [place] Rate: 103 P: 41 [place]: 140 QRS: 47 QRSD: 82 T: 30 QT: 324 QTc: 425 Interpretive Statements SINUS TACHYCARDIA BORDERLINE T WAVE ABNORMALITY- ANTERIOR LEADS BORDERLINE ECG No previous ECG available for comparison Electronically Signed On 02-06-2025 06:16:39 CDT by Ramu Lubin D.O.
--- NOTE | 2025-02-06 00:23 | PC.NURSE ---
edt at bedside for 2nd attempt on blood cultures
[2025-02-06] MEDS: cefTRIAXone 1 GM in SODIUM CHLORIDE 0.9% IV 50 ML 100 ML IVPB (00:52)
[2025-02-06] MEDS: MORPHINE SULFATE (*CRX) 2 MG/ML INJ IV PUSH (00:53)
[2025-02-06 01:34] LABS: Thyroid Stimulating Hormone 0.471 uIU/mL (0.465-4.680)
== END 2025-02-06 03:01 | disposition home or self-care (01) ==
PROVIDERS: Emergency Provider Student in an Organized Health Care Education/Training Program; PCP Family Medicine
DX: N12 Tubulo-interstitial nephritis, not specified as acute or chronic (principal); D64.9 Anemia, unspecified; R94.31 Abnormal electrocardiogram [ECG] [EKG]; R00.0 Tachycardia, unspecified
CPT/HCPCS: 36415; 74177; 80053; 81001; 81025; 83690; 84443; 85025; 85380; 87040; 87086; 93005; 96361; 96365; 96374; 96375; 99284; A9270; J0696; J1885; J2270; J7030; Q9967

== ENCOUNTER 2025-02-06 10:29 | Emergency (ER) | payer OTHER, SELFPAY ==
[2025-02-06] VITALS (19 sets, daily range): BP systolic 90–124; BP diastolic 58–77; PULSE 93–123; RESP 14–38; TEMP 36.9; O2SAT 98–100
--- OUTSIDE RECORDS SUMMARY | 2025-02-06 10:33 | XMS_ITS | Clinical Summary ---
Author Organization [facility] Address [address] [place] [address] Care Team Providers Care Public Health Doctor Name Role Phone Laura Bullard MD Primary Care Provider [phone] Source Comments [facility],non-owned Affiliates and Associated Physician Practices is amultiple site organization consisting of ambulatory clinics and hospital sitesin [place], [place], [place] and [place]. This disclosure is being madepursuant to the Care Everywhere program and may not contain all information available regarding this patient. Last updated 18.[facility] Active Problems Problem Noted [...] this topic Insurance ANTHEM ANTHEM Care Teams Public Health Doctor Relationship Specialty Start Date End Date Laura Bullard MD [address] [place] [address] PCP - General Family Medicine 01/27/19
[2025-02-06] MEDS: BELLADONNA ALK/PHENOB ELIX 10 ML, MAG HYDROX/ALUMINUM HYD/SIMETH 30 ML, LIDOCAINE 2% VI... PO (11:18)
[2025-02-06] MEDS: KETOROLAC (*BKC) 60 MG/2 ML VIAL IM (11:18)
--- NOTE | 2025-02-06 12:26 | ED_ITS ---
HPI - Back Pain/Injury General Chief Complaint: Back Pain/Injury Stated Complaint: throat pain Time Seen by Provider: 02/06/25 10:36 History of Present Illness HPI Narrative: Patient is a 24-year-old female who presents ER with back pain prescription. Was seen last night for the same pain. She reports she is diagnosed with pyelonephritis. Her blood working urine from last night look unremarkable though she was prescribed cephalexin as well as Tylenol ibuprofen. Due to sore throat she is unable to swallow her medications after she filled them today. Related Data Allergies Allergy/AdvReac Type Severity Reaction Status Date / Time No Known Allergies Allergy Verified 02/05/25 19:33 Review of Systems Review of Systems: All systems reviewed & are unremarkable except as noted in HPI and below Constitutional: Constitutional: Reports no additional constitutional complaints Cardiovascular: Cardiovascular: Reports no additional cardiovascular complaints Respiratory: Respiratory: Reports no additional respiratory complaints PMFSH Past Medical History Medical History Right upper quadrant abdominal pain Family History Family History Mother No pertinent past medical history Social History Social History Social History: Caffeine-daily Smoking status: Never smoker Alcohol intake: never Substance use: never Substance use type: does not use Lack of Transportation: No Lack of Food: Never True Current Housing: I Have Housing Concerned About Future Housing: No Difficulty Paying Gas/Electric Bills: No Difficulty Paying for Meds: No Currently Unemployed: No Education: High School Diploma/GED Difficulty w/ Childcare or Family Care: No Living arrangements: with family Gender identity (if verbalized by the patient): Female Spiritual care concerns: No Exam Narrative: GENERAL: Uncomfortable/tearful-appearing, well-nourished. HEAD: Normocephalic, atraumatic. ENT: Mucous membranes moist. Normal appearing posterior oropharynx without tonsillar hypertrophy or exudate. Uvula midline and nonedematous. No angioedema. NECK: Supple. CHEST: Clear to auscultation. No respiratory distress. HEART: Tachycardic. Normal peripheral pulses. ABDOMEN: Soft, nontender, nondistended. No CVA tenderness. EXTREMITIES: Normal range of motion. No edema. NEURO: Alert and oriented x3. PSYCH: Normal mood and affect. Course Course Emergency Course: Patient had a unremarkable exam last night with a normal CBC and CMP as well as urinalysis lacking significant infection. I do not feel she needs repeat labs. Patient received Toradol body aches and a GI cocktail for sore throat. I will discharge her with some Flexeril in case she is having muscle spasms causing some her back pain and also viscous lidocaine for sore throat. Vital Signs Vital signs: Vital Signs Pulse Rate 111 H 02/06/25 11:01 Respiratory Rate 18 02/06/25 11:01 Blood Pressure 124/77 02/06/25 11:01 Pulse Oximetry 100 02/06/25 11:01 Oxygen Delivery Room Air 02/06/25 11:01 Pulse Rate 111 H 02/06/25 11:01 Respiratory Rate 18 02/06/25 11:01 Blood Pressure 124/77 02/06/25 11:01 Pulse Oximetry 100 02/06/25 11:01 Oxygen Delivery Room Air 02/06/25 11:01 Discharge Plan Discharge Clinical Impression: Sore throat, Back pain Patient Disposition: Home Condition: Stable Instructions: Back Pain (ED) Additional Instructions: Please return to the emergency department if you develop severe pain that is not controlled by pain medications or if you are unable to walk because of pain or weakness. Return to the emergency department immediately if you develop fevers, loss of bowel or bladder control (dribbling of urine or having accidents you wouldn't normally have), inability to urinate, numbness of your genital or anal area, or weakness/numbness of your legs or arms as these could all be signs of a serious medical emergency. Patient Language: Tajik Prescriptions: New lidocaine HCl [Lidocaine Viscous] 2 % solution 1 applic mucous membrane TID Qty: 300 0RF cyclobenzaprine 10 mg tablet 10 mg PO TID PRN (Reason: muscle spasm) Qty: 20 0RF No Action bupropion HCl 150 mg tablet extended release 24 hr 150 mg PO DAILY Qty: 90 0RF clindamycin-benzoyl peroxide 1-5 % gel 1 applic topical .HS Qty: 50 2RF fluconazole 150 mg tablet 150 mg PO Q72H Qty: 2 0RF acetaminophen 650 mg tablet extended release 650 mg PO Q8H PRN (Reason: pain) Qty: 30 0RF ibuprofen 600 mg tablet 600 mg PO TID PRN (Reason: pain) Qty: 30 0RF cephalexin 500 mg tablet 500 mg PO Q8H 10 Days Qty: 30 0RF metronidazole 500 mg tablet 500 mg PO Q12H Qty: 14 0RF Follow-up/Referrals: Laura Bullard MD [Primary Care Provider] - 1 Week
== END 2025-02-06 13:41 | disposition home or self-care (01) ==
PROVIDERS: Emergency Provider Emergency Medicine; PCP Family Medicine
DX: J02.9 Acute pharyngitis, unspecified (principal); M54.9 Dorsalgia, unspecified
CPT/HCPCS: 96372; 99283; A9270; J1885

== ENCOUNTER 2025-02-08 16:21 | Emergency (ER) | payer OTHER, SELFPAY ==
--- OUTSIDE RECORDS SUMMARY | 2025-02-08 16:23 | XMS_ITS ---
Author Organization Unknown ENCOUNTERS Encounter Performer Location Date Diagnosis Diagnosis Status Emergency [facility] [address] [place] [address] [id number] [place]AC[place] Pre Admit [facility] [address] [place] [address] [id number] Pre Admit [facility] [address] [place] [address] [id number] Emergency [facility] [address] [place] [address] [id number] [place] Outpatient Laurasher Bullard [facility] [address] [place] [address] [id number] FLACO *Note: Encounters from your own facility or health system may be excluded. Allergies, Adverse Reactions, Alerts Allergen Type Severity Identification Date Medications Name Date Quantity Days Supplied GPI Number
--- OUTSIDE RECORDS SUMMARY | 2025-02-08 16:23 | XMS_ITS | Clinical Summary ---
Author Organization [facility] Address [address] [place] [address] Care Team Providers Care Data Systems Manager Name Role Phone Laura Bullard MD Primary Care Provider [phone] Source Comments [facility],non-owned Affiliates and Associated Physician Practices is amultiple site organization consisting of ambulatory clinics and hospital sitesin [place], [place], [place] and [place]. This disclosure is being madepursuant to the Care Everywhere program and may not contain all information available regarding this patient. Last updated 18.[facility] Active Problems Problem Noted Date [...] this topic Insurance ANTHEM ANTHEM Care Teams Data Systems Manager Relationship Specialty Start Date End Date Laura Bullard MD [address] [place] [address] PCP - General Family Medicine 01/27/19
[2025-02-08 16:35] VITALS: BP 115/65; PULSE 91; RESP 18; TEMP 36.2; O2SAT 100
--- NOTE | 2025-02-08 16:35 | ED.URI ---
HPI - URI/Sore Throat General Chief Complaint: Upper Respiratory Infection Stated Complaint: Sore throat Time Seen by Provider: 02/08/25 16:38 History of Present Illness HPI Narrative: 24 y/o female presented for c/o sore throat. Onset 2 days. Pt was seen in the ER 02/05 and 02/06. Pt was initially treated for pylonephritis, given Rx cephalexin after ceftriaxone, however she returned the next day to the ER because she was unable to take the antibiotic due to painful swallow. She is now able to take the antibiotic. Denies any associated FLORES, n/v/d/f/c. Takes claritin for allergies. Related Data Allergies Allergy/AdvReac Type Severity Reaction Status Date / Time No Known Allergies Allergy Verified 02/08/25 16:31 Review of Systems Review of Systems: CONSTITUTIONAL: Denies body aches, fever, chills, or sweats. EYES: Denies visual changes, redness, or discharge. ENT: reports sore throat Denies rhinorrhea, congestion, or otalgia. CARDIOVASCULAR: Denies chest pain, palpitations, or edema. RESPIRATORY: Denies dyspnea. GASTROINTESTINAL: Denies abdominal pain, nausea, vomiting, or diarrhea. SKIN: Denies rash NEUROLOGIC: Denies headache PMFSH Past Medical History Medical History Right upper quadrant abdominal pain Family History Family History Mother No pertinent past medical history Social History Social History Social History: Caffeine-daily Smoking status: Never smoker Alcohol intake: never Substance use: never Substance use type: does not use Lack of Transportation: No Lack of Food: Never True Current Housing: I Have Housing Concerned About Future Housing: No Difficulty Paying Gas/Electric Bills: No Difficulty Paying for Meds: No Currently Unemployed: No Education: High School Diploma/GED Difficulty w/ Childcare or Family Care: No Living arrangements: with family Gender identity (if verbalized by the patient): Female Spiritual care concerns: No Exam Narrative: GENERAL: well appearing, no acute distress. EYES: conjunctivae clear ENT: Mucous membranes moist. TMs pearly hewitt with normal light reflex bilaterally; no tragal tenderness. Oropharynx mildly erythematous without lesions. Tonsils enlarged 1+ and without exudate. No drooling, no hoarseness, no trismus, uvula midline. No tripod positioning, hot potato voice, or soft palate swelling. NECK: Supple. right anterior cervical lymphadenopathy CHEST: Clear to auscultation, breath sounds equal. No respiratory distress, speaks in full sentences. HEART: Regular rate and rhythm. SKIN: Warm, dry, no rash. NEURO: Alert and oriented x3. Course Course Emergency Course: Patient is aware of diagnosis, understands and agrees to treatment plan. Anticipatory guidance given. Patient agrees to follow-up as directed and is aware of reasons to seek care at the emergency department. Portions of this record may have been created with voice recognition software Level of Care: Express Care Visit MDM - URI/Sore Throat MDM Narrative Medical decision making narrative: neg strep result reviewed with pt. Pt will continue the cephalexin as previously prescribed. Shared decision making pt declined testing for mono or std. Advise supportive treatments. Patient is appropriate for outpatient treatment and follow-up. Differential Diagnosis Differential diagnosis: Likely upper respiratory infection, viral infection and pharyngitis Discharge Plan Discharge Clinical Impression: Pharyngitis Qualifiers: Pharyngitis/tonsillitis etiology: unspecified etiology Qualified Code(s): J02.9 - Acute pharyngitis, unspecified Patient Disposition: Home Condition: Stable Instructions: Antibiotic Form, Pharyngitis (ED) Additional Instructions: Rapid strep swab was negative today You will be notified in a few days if the culture comes back positive for strep if symptoms are due to a viral illness, it is not treated with antibiotics. Viral symptoms can be present for up to 10-14 days. Recommendations: Continue taking the antibiotic as previously prescribed Continue Claritin for sinus congestion Motrin and Tylenol every 8 hours as needed for pain/fever Soft foods, cool liquids, warm tea. Gargle with warm saltwater twice a day. Chloraseptic spray and throat lozenges. Rest and stay hydrated. --Follow up with your PCP --Go to the ER immediately if you cannot swallow your saliva, trouble breathing/wheezing, throat swelling, pain is persistent and severe Patient Language: Azerbaijani Prescriptions: No Action bupropion HCl 150 mg tablet extended release 24 hr 150 mg PO DAILY Qty: 90 0RF clindamycin-benzoyl peroxide 1-5 % gel 1 applic topical .HS Qty: 50 2RF fluconazole 150 mg tablet 150 mg PO Q72H Qty: 2 0RF lidocaine HCl [Lidocaine Viscous] 2 % solution 1 applic mucous membrane TID Qty: 300 0RF cyclobenzaprine 10 mg tablet 10 mg PO TID PRN (Reason: muscle spasm) Qty: 20 0RF acetaminophen 650 mg tablet extended release 650 mg PO Q8H PRN (Reason: pain) Qty: 30 0RF ibuprofen 600 mg tablet 600 mg PO TID PRN (Reason: pain) Qty: 30 0RF cephalexin 500 mg tablet 500 mg PO Q8H 10 Days Qty: 30 0RF metronidazole 500 mg tablet 500 mg PO Q12H Qty: 14 0RF Follow-up/Referrals: Laura Bullard MD [Primary Care Provider] -
[2025-02-08 16:46] LABS: EDSTREPNEGPOS1 Negative (Negative)
== END 2025-02-08 16:48 | disposition home or self-care (01) ==
PROVIDERS: Emergency Provider Nurse Practitioner Family; PCP Family Medicine
DX: J02.9 Acute pharyngitis, unspecified (principal)
CPT/HCPCS: 87081; 87880; 99213; G0463